=== PATIENT | male | born 1935 | race Caucasian/White ===

== ENCOUNTER 2019-10-14 14:09 | Outpatient (RCR) | payer MEDICARE, SELFPAY ==
[2019-07-22 17:37] LABS: INR 2.5; Prothrombin Time 26.4 Seconds (9.64-11.0)
[2019-08-14 13:49] LABS: INR 3.9; Prothrombin Time 40.6 Seconds (9.64-11.0)
[2019-08-16 09:24] LABS: INR 2.4; Prothrombin Time 25.4 Seconds (9.64-11.0)
[2019-09-04 14:08] LABS: INR 2.7; Prothrombin Time 28.6 Seconds (9.64-11.0)
[2019-09-16 16:49] LABS: INR 4.4; Prothrombin Time 46.3 Seconds (9.64-11.0)
[2019-09-19 11:07] LABS: INR 2.8; Prothrombin Time 29.2 Seconds (9.64-11.0)
[2019-09-27 15:08] LABS: INR 2.7; Prothrombin Time 28.1 Seconds (9.64-11.0)
[2019-10-09 11:29] LABS: INR 3.8; Prothrombin Time 37.5 Seconds (9.64-11.0)
[2019-10-14 14:34] LABS: INR 2.7; Prothrombin Time 27.3 Seconds (9.64-11.0)
[2019-10-25 11:43] LABS: INR 3.9; Prothrombin Time 38.3 Seconds (9.64-11.0)
== END 2019-10-20 23:59 | disposition home or self-care (01) ==
LOC: CHSLAB 14:09
PROVIDERS: PCP Family Medicine; Visit Provider Family Medicine
DX: I48.91 Unspecified atrial fibrillation (principal)
CPT/HCPCS: 36415; 85610

== ENCOUNTER 2020-01-07 14:12 | Outpatient (RCR) | payer MEDICARE, SELFPAY ==
[2019-10-23 12:00] LABS: Prothrombin Time 39.8 Seconds (9.64-11.0)
[2019-10-28 15:17] LABS: INR 1.4; Prothrombin Time 14.7 Seconds (9.64-11.0)
[2019-11-04 14:14] LABS: Prothrombin Time 20.2 Seconds (9.64-11.0)
[2019-11-12 14:21] LABS: INR 3.7; Prothrombin Time 36.4 Seconds (9.64-11.0)
[2019-11-19 13:48] LABS: INR 2.7; Prothrombin Time 26.7 Seconds (9.64-11.0)
[2019-12-02 15:03] LABS: INR 1.8; Prothrombin Time 18.7 Seconds (9.64-11.0)
[2020-01-07 14:35] LABS: Prothrombin Time 30.3 Seconds (9.64-11.0)
== END 2020-01-21 23:59 | disposition home or self-care (01) ==
LOC: CHSLAB 14:12
PROVIDERS: PCP Family Medicine; Visit Provider Family Medicine
DX: I48.91 Unspecified atrial fibrillation (principal)
CPT/HCPCS: 36415; 85610

== ENCOUNTER 2020-04-20 13:50 | Outpatient (RCR) | payer MEDICARE, SELFPAY ==
[2020-01-28 13:33] LABS: Prothrombin Time 29.4 Seconds (9.64-11.0)
[2020-02-24 15:46] LABS: INR 2.6
[2020-04-20 14:15] LABS: INR 2.3; Prothrombin Time 23.4 Seconds (9.64-11.0)
== END 2020-04-27 23:59 | disposition home or self-care (01) ==
LOC: CHSLAB 13:50
PROVIDERS: PCP Family Medicine; Visit Provider Family Medicine
DX: I48.91 Unspecified atrial fibrillation (principal); Z79.01 Long term (current) use of anticoagulants
CPT/HCPCS: 36415; 85610

== ENCOUNTER 2020-07-15 14:40 | Outpatient (RCR) | payer MEDICARE, SELFPAY ==
[2020-05-18 16:49] LABS: INR 1.8; Prothrombin Time 18.7 Seconds (9.64-11.0)
[2020-06-01 16:26] LABS: INR 1.9; Prothrombin Time 19.6 Seconds (9.64-11.0)
[2020-06-15 10:44] LABS: INR 2.3
[2020-07-15 15:06] LABS: INR 2.6; Prothrombin Time 25.7 Seconds (9.64-11.0)
== END 2020-08-16 23:59 | disposition home or self-care (01) ==
LOC: CHSLAB 14:40
PROVIDERS: PCP Family Medicine; Visit Provider Family Medicine
DX: Z79.01 Long term (current) use of anticoagulants (principal)
CPT/HCPCS: 36415; 85610

== ENCOUNTER 2020-09-16 12:22 | Outpatient (CLI) | payer MEDICARE, SELFPAY ==
[2020-09-16 13:03] LABS: INR 2.2
== END 2020-09-16 12:23 | disposition home or self-care (01) ==
LOC: CHSLAB 12:23
PROVIDERS: PCP Family Medicine; Visit Provider Family Medicine
DX: Z79.01 Long term (current) use of anticoagulants (principal)
CPT/HCPCS: 36415; 85610

== ENCOUNTER 2020-10-19 14:26 | Outpatient (RCR) | payer MEDICARE, SELFPAY ==
[2020-08-18 12:17] LABS: INR 2.4; Prothrombin Time 25.2 Seconds (9.50-12.10)
[2020-10-19 14:55] LABS: INR 1.5; Prothrombin Time 15.4 Seconds (9.50-12.10)
== END 2020-11-16 23:59 | disposition home or self-care (01) ==
LOC: CHSLAB 14:26
PROVIDERS: PCP Family Medicine; Visit Provider Family Medicine
DX: Z79.01 Long term (current) use of anticoagulants (principal)
CPT/HCPCS: 36415; 85610

== ENCOUNTER 2021-02-17 13:19 | Outpatient (RCR) | payer MEDICARE, SELFPAY ==
[2020-11-19 11:37] LABS: INR 2.8; Prothrombin Time 28.2 Seconds (9.50-12.10)
[2021-01-05 11:05] LABS: INR 2.4; Prothrombin Time 24.4 Seconds (9.50-12.10)
[2021-01-27 13:57] LABS: INR 1.6; Prothrombin Time 16.6 Seconds (9.50-12.10)
[2021-02-03 14:11] LABS: INR 1.6; Prothrombin Time 17.1 Seconds (9.50-12.10)
[2021-02-17 13:40] LABS: INR 2.2; Prothrombin Time 22.4 Seconds (9.50-12.10)
== END 2021-02-17 23:59 | disposition home or self-care (01) ==
LOC: CHSLAB 13:19
PROVIDERS: PCP Family Medicine; Visit Provider Family Medicine
DX: Z79.01 Long term (current) use of anticoagulants (principal)
CPT/HCPCS: 36415; 85610

== ENCOUNTER 2021-05-26 13:47 | Outpatient (RCR) | payer MEDICARE, SELFPAY ==
[2021-03-02 13:45] LABS: Prothrombin Time 20.2 Seconds (9.50-12.10)
[2021-03-24 13:53] LABS: INR 1.8; Prothrombin Time 19.1 Seconds (9.50-12.10)
[2021-04-07 14:04] LABS: INR 1.5; Prothrombin Time 15.6 Seconds (9.50-12.10)
[2021-04-14 13:56] LABS: INR 1.8; Prothrombin Time 18.3 Seconds (9.50-12.10)
[2021-04-21 14:05] LABS: INR 1.8
[2021-05-12 11:14] LABS: INR 3.6; Prothrombin Time 36.5 Seconds (9.50-12.10)
[2021-05-19 13:48] LABS: INR 4.3; Prothrombin Time 42.8 Seconds (9.50-12.10)
[2021-05-26 14:21] LABS: INR 2.4; Prothrombin Time 24.7 Seconds (9.50-12.10)
== END 2021-05-31 23:59 | disposition home or self-care (01) ==
LOC: CHSLAB 13:47
PROVIDERS: PCP Family Medicine; Visit Provider Family Medicine
DX: Z79.01 Long term (current) use of anticoagulants (principal)
CPT/HCPCS: 36415; 85610

== ENCOUNTER 2021-08-05 13:04 | Outpatient (CLI) | payer MEDICARE, SELFPAY ==
[2021-08-05 13:28] LABS: INR 1.7; Prothrombin Time 17.2 Seconds (9.50-12.10)
== END 2021-08-05 13:05 | disposition home or self-care (01) ==
LOC: CHSLAB 13:06
PROVIDERS: PCP Family Medicine; Visit Provider Family Medicine
DX: Z79.01 Long term (current) use of anticoagulants (principal)
CPT/HCPCS: 36415; 85610

== ENCOUNTER 2021-09-01 12:40 | Outpatient (RCR) | payer MEDICARE, SELFPAY ==
[2021-06-10 13:57] LABS: INR 2.5
[2021-06-21 14:11] LABS: Prothrombin Time 40.4 Seconds (9.50-12.10)
[2021-06-29 12:10] LABS: Prothrombin Time 30.5 Seconds (9.50-12.10)
[2021-07-14 11:22] LABS: Prothrombin Time 20.3 Seconds (9.50-12.10)
[2021-07-21 15:12] LABS: INR 1.9; Prothrombin Time 19.2 Seconds (9.50-12.10)
[2021-08-18 14:06] LABS: INR 2.1; Prothrombin Time 21.2 Seconds (9.50-12.10)
[2021-09-01 13:11] LABS: INR 1.8; Prothrombin Time 18.7 Seconds (9.50-12.10)
== END 2021-09-08 23:59 | disposition home or self-care (01) ==
LOC: CHSLAB 12:40
PROVIDERS: PCP Family Medicine; Visit Provider Family Medicine
DX: Z79.01 Long term (current) use of anticoagulants (principal)
CPT/HCPCS: 36415; 85610

== ENCOUNTER 2021-11-27 08:27 | Outpatient (CLI) | payer MEDICARE, SELFPAY ==
[2021-11-27 12:01] LABS: SARS-CoV-2 RNA PCR Negative (Negative)
== END 2021-11-27 08:28 | disposition home or self-care (01) ==
PROVIDERS: PCP Family Medicine; Visit Provider Family Medicine
DX: Z01.818 Encounter for other preprocedural examination (principal); Z20.822 Contact with and (suspected) exposure to COVID-19
CPT/HCPCS: C9803; U0003; U0005

== ENCOUNTER 2021-12-22 13:07 | Outpatient (RCR) | payer MEDICARE, SELFPAY ==
[2021-10-06 13:41] LABS: INR 1.5; Prothrombin Time 15.9 Seconds (9.50-12.10)
[2021-10-18 13:46] LABS: INR 2.5; Prothrombin Time 25.5 Seconds (9.50-12.10)
[2021-11-01 13:26] LABS: INR 2.5; Prothrombin Time 25.3 Seconds (9.64-11.0)
[2021-11-15 10:46] LABS: INR 3.6; Prothrombin Time 35.9 Seconds (9.50-12.10)
[2021-12-09 13:50] LABS: INR 1.3; Prothrombin Time 14.1 Seconds (9.50-12.10)
[2021-12-22 13:29] LABS: INR 2.4; Prothrombin Time 24.4 Seconds (9.50-12.10)
== END 2022-01-04 23:59 | disposition home or self-care (01) ==
LOC: CHSLAB 13:07
PROVIDERS: PCP Family Medicine; Visit Provider Family Medicine
DX: Z79.01 Long term (current) use of anticoagulants (principal)
CPT/HCPCS: 36415; 85610

== ENCOUNTER 2022-02-21 12:54 | Outpatient (CLI) | payer MEDICARE, SELFPAY ==
[2022-02-21 13:22] LABS: Prothrombin Time 30.3 Seconds (9.50-12.10)
== END 2022-02-21 12:55 | disposition home or self-care (01) ==
LOC: CHSLAB 12:58
PROVIDERS: PCP Family Medicine; Visit Provider Family Medicine
DX: Z79.01 Long term (current) use of anticoagulants (principal)
CPT/HCPCS: 36415; 85610

== ENCOUNTER 2022-03-29 11:00 | Outpatient (RCR) | payer MEDICARE, SELFPAY ==
[2022-01-19 14:04] LABS: INR 2.9; Prothrombin Time 29.5 Seconds (9.50-12.10)
[2022-03-29 11:24] LABS: INR 3.2; Prothrombin Time 32.1 Seconds (9.50-12.10)
== END 2022-04-19 23:59 | disposition home or self-care (01) ==
LOC: CHSLAB 11:00
PROVIDERS: PCP Family Medicine; Visit Provider Family Medicine
DX: Z79.01 Long term (current) use of anticoagulants (principal)
CPT/HCPCS: 36415; 85610

== ENCOUNTER 2022-06-23 14:59 | Outpatient (RCR) | payer MEDICARE, SELFPAY ==
[2022-04-25 12:51] LABS: INR 3.2; Prothrombin Time 31.9 Seconds (9.50-12.10)
[2022-06-23 15:37] LABS: INR 2.3; Prothrombin Time 23.4 Seconds (9.50-12.10)
== END 2022-07-24 23:59 | disposition home or self-care (01) ==
LOC: CHSLAB 14:59
PROVIDERS: PCP Family Medicine; Visit Provider Family Medicine
DX: Z79.01 Long term (current) use of anticoagulants (principal)
CPT/HCPCS: 36415; 85610

== ENCOUNTER 2022-08-24 13:03 | Outpatient (RCR) | payer MEDICARE, SELFPAY ==
[2022-07-25 13:53] LABS: INR 3.2; Prothrombin Time 31.8 Seconds (9.50-12.10)
[2022-08-24 13:41] LABS: INR 3.4; Prothrombin Time 33.5 Seconds (9.50-12.10)
== END 2022-10-23 23:59 | disposition home or self-care (01) ==
LOC: CHSLAB 13:03
PROVIDERS: PCP Family Medicine; Visit Provider Family Medicine
DX: Z51.81 Encounter for therapeutic drug level monitoring (principal); Z79.01 Long term (current) use of anticoagulants
CPT/HCPCS: 36415; 85610

== ENCOUNTER 2022-10-21 13:29 | Outpatient (CLI) | payer MEDICARE, SELFPAY ==
--- NOTE | 2022-10-21 14:05 | ECG_ITS ---
Measurements Intervals [place] Rate: 101 P: [place]: 0 QRS: -38 QRSD: 90 T: 4 QT: 346 QTc: 450 Interpretive Statements ATRIAL FIBRILLATION WITH RAPID VENTRICULAR RESPONSE LEFT AXIS DEVIATION [QRS AXIS < -30] NO PREVIOUS ECG AVAILABLE FOR COMPARISON Electronically Signed On 10-21-2022 14:25:03 REGIONAL BUSINESS MANAGER by Faraz García M.D.
--- NOTE | 2022-10-21 15:00 | ECHO_ITS ---
Patient Info Name: Neil Jeong Age: 87 years : 1935 Gender: Male Ht: 68 in Wt: 202 lbs BSA: 2.12 m2 HR: 109 bpm BP: 106 / 65 mmHg Technical Quality: Fair Exam Date: 10/21/2022 3:00 PM Exam Location: [facility] Patient Status: Outpatient Admit Date: 10/21/2022 Staff Ordering Physician: Erin, Kalyan CARRERA [employer] As[employer]er: Yonatan Sahu, THELMA, RT Attending Provider: ErinKalyan MD Exam Type: CA echo doppler color flow Study Info Indications R06.00 - Dyspnea, unspecified Complete two-dimensional, color flow and Doppler transthoracic echocardiogram is performed. Strain analysis performed. Summary 1. Complete two-dimensional, color flow and Doppler transthoracic echocardiogram is performed. 2. Left ventricular chamber dimension is normal. 3. Left ventricular systolic function is normal, estimated at 55-60%. 4. There is moderately increased left ventricular wall thickness. 5. The left ventricular diastolic function is grade I diastolic dysfunction. 6. E/e' 13 is mildly elevated. 7. Right ventricular systolic function is mildly reduced and with abnormal TAPSE 1.3 cm. 8. Left atrial chamber dimension is moderately enlarged. 9. There is severe aortic valve sclerosis. 10. There is severe aortic valve stenosis with a peak velocity of 346 cm/s, mean gradient of 19 mmHg, and aortic valve area of 0.6 cm2. 11. There is mild aortic valve regurgitation. 12. The mitral valve has moderately calcified annulus. 13. There is mild mitral valve regurgitation. 14. There is trace tricuspid valve regurgitation. 15. Mild pulmonary hypertension, estimated pulmonary arterial systolic pressure is 47 mmHg. Left Ventricle E/e' 13 is mildly elevated. Left ventricular chamber dimension is normal. Left ventricular systolic function is normal, estimated at 55-60%. There is moderately increased left ventricular wall thickness. The left ventricular diastolic function is grade I diastolic dysfunction. Right Ventricle Right ventricular systolic function is mildly reduced and with abnormal TAPSE 1.3 cm. Right ventricular chamber dimension is normal. Left Atria Left atrial chamber dimension is moderately enlarged. Right Atria Right atrial chamber dimension is normal. Aortic Valve The aortic valve is trileaflet. There is severe aortic valve sclerosis. There is severe aortic valve stenosis with a peak velocity of 346 cm/s, mean gradient of 19 mmHg, and aortic valve area of 0.6 cm2. There is mild aortic valve regurgitation. Pulmonic Valve There is no pulmonic regurgitation. Mitral Valve The mitral valve has moderately calcified annulus. There is no mitral valve stenosis. There is mild mitral valve regurgitation. Tricuspid Valve There is trace tricuspid valve regurgitation. Mild pulmonary hypertension, estimated pulmonary arterial systolic pressure is 47 mmHg. Pericardium/Pleural There is no pericardial effusion. Inferior Vena Cava Normal inferior vena cava with >50% collapse upon inspiration consistent with normal right atrial pressure, 5 mmHg. Aorta The aortic root size at the sinus of Valsalva is normal. Left Ventricular Outflow Tract Name Value Normal LVOT 2D LVOT Diameter 2.0 cm
[2022-10-21 15:30] LABS: INR 4.6; Prothrombin Time 44.7 Seconds (9.50-12.10)
== END 2022-10-21 13:30 | disposition home or self-care (01) ==
PROVIDERS: PCP Family Medicine; Visit Provider Family Medicine
DX: R06.09 Other forms of dyspnea (principal); Z79.01 Long term (current) use of anticoagulants; I08.0 Rheumatic disorders of both mitral and aortic valves; I27.20 Pulmonary hypertension, unspecified; I48.91 Unspecified atrial fibrillation
CPT/HCPCS: 36415; 85610; 93005; 93306

== ENCOUNTER 2022-12-07 14:08 | Outpatient (NON) | payer MEDICARE, SELFPAY ==
[2022-12-07 13:36] LABS: Basophils Absolute Auto 0.06 K/mm3 (0.00-0.10); Basophils Percent Auto 0.8 % (0.0-1.0); Eosinophils Percent Auto 9.4 % (1.0-6.0); Hematocrit 41.6 % (37.0-46.0); Hemoglobin 13.6 g/dL (12.4-15.3); Immature Granulocyte Absolute 0.03 K/mm3 (0.00-0.00); Immature Granulocyte Percent A 0.4 % (0.0-0.0); Lymphocytes Absolute Auto 1.14 K/mm3 (1.10-4.50); Lymphocytes Percent Auto 15.2 % (18.0-42.0); Mean Corpuscular HGB Conc 32.7 g/dL (32.0-36.0); Mean Corpuscular Hemoglobin 30.7 pg (27.0-31.0); Mean Corpuscular Volume 93.9 fL (78.0-102.0); Mean Platelet Volume 11.7 fl (8.7-11.0); Monocytes Absolute Auto 0.89 K/mm3 (0.10-0.90); Monocytes Percent Auto 11.9 % (2.0-11.0); Neutrophils Absolute Auto 4.7 K/mm3 (1.7-7.2); Neutrophils Percent Auto 62.3 % (50.0-70.0); Platelet Count Result 142 K/mm3 (150-420); Red Blood Count 4.43 M/mm3 (4.70-6.10); Red Cell Distribution Width 15.1 % (11.6-14.4); White Blood Count 7.5 K/mm3 (4.8-10.8)
[2022-12-07 13:49] LABS: Prothrombin Time 20.3 Seconds (9.50-12.10)
[2022-12-07 14:23] LABS: Anion Gap 9 mmol/L (8-16); Blood Urea Nitrogen 40 mg/dL (7-18); Calcium 9.2 mg/dL (8.5-10.1); Carbon Dioxide 27 mmol/L (21-32); Chloride 106 mmol/L (98-108); Estimated Glomerular Filt Rate 12; Glucose 100 mg/dL (70-99); Magnesium 2.1 mg/dL (1.8-2.4); Osmolality Calculated 303 mOsm/kg (285-295); Potassium 4.2 mmol/L (3.5-5.1); Sodium 142 mmol/L (136-145)
== END 2022-12-07 14:09 | disposition home or self-care (01) ==
LOC: CHSLAB 14:11
PROVIDERS: Family Medicine; Visit Provider Specialist
DX: R06.02 Shortness of breath (principal); N18.6 End stage renal disease; R53.1 Weakness; I35.0 Nonrheumatic aortic (valve) stenosis
CPT/HCPCS: 36415; 80048; 83735; 85025; 85610

== ENCOUNTER 2023-01-02 13:21 | Outpatient (CLI) | payer MEDICARE, SELFPAY ==
[2023-01-02 13:57] LABS: INR 2.1; Prothrombin Time 21.4 Seconds (9.50-12.10)
[2023-01-02 14:19] LABS: Alanine Aminotransferase 15 U/L (16-63); Albumin Level 2.8 g/dL (3.4-5.0); Alkaline Phosphatase 69 U/L (46-116); Anion Gap 10 mmol/L (8-16); Aspartate Amino Transferase 12 U/L (15-37); Bilirubin,Total 0.3 mg/dL (0.00-1.00); Blood Urea Nitrogen 35 mg/dL (7-18); Calcium 8.9 mg/dL (8.5-10.1); Carbon Dioxide 28 mmol/L (21-32); Chloride 104 mmol/L (98-108); Estimated Glomerular Filt Rate 12; Glucose 99 mg/dL (70-99); Osmolality Calculated 302 mOsm/kg (285-295); Sodium 142 mmol/L (136-145); Total Protein 5.8 g/dL (6.4-8.2)
== END 2023-01-02 13:22 | disposition home or self-care (01) ==
LOC: CHSLAB 13:25
PROVIDERS: PCP Family Medicine
DX: I35.0 Nonrheumatic aortic (valve) stenosis (principal); Z79.01 Long term (current) use of anticoagulants
CPT/HCPCS: 36415; 80053; 85610

== ENCOUNTER 2023-01-25 13:16 | Outpatient (RCR) | payer MEDICARE, SELFPAY ==
[2022-11-04 14:15] LABS: INR 2.1; Prothrombin Time 21.9 Seconds (9.50-12.10)
[2022-11-21 13:36] LABS: INR 1.9; Prothrombin Time 20.1 Seconds (9.50-12.10)
[2023-01-25 13:43] LABS: INR 2.2; Prothrombin Time 22.3 Seconds (9.50-12.10)
== END 2023-02-02 23:59 | disposition home or self-care (01) ==
LOC: CHSLAB 13:16
PROVIDERS: PCP Family Medicine; Visit Provider Family Medicine
DX: Z51.81 Encounter for therapeutic drug level monitoring (principal); Z79.01 Long term (current) use of anticoagulants
CPT/HCPCS: 36415; 80048; 83735; 85025; 85610